=== PATIENT | male | born 1995 | race Caucasian/White ===

== ENCOUNTER 2017-03-04 13:30 | Emergency (ER) | payer BC, OTHER ==
[~2017-03-04] VITALS: Ht 188 cm; Wt 63.5 kg
[2017-03-04 13:34] VITALS: TEMP 36.6; Ht 188 cm; Wt 63.5 kg
[2017-03-04] MEDS ORDERED: SODIUM CHLORIDE 0.9% 1000ML 1,000 ML IV STA (14:00)
[2017-03-04] MEDS ORDERED: KETOROLAC TROMETHAMINE 30 MG/ML VIAL IV STA (14:00)
[2017-03-04] MEDS ORDERED: PROCHLORPERAZINE 5 MG/ML 2 ML VIAL IV STA (14:00)
[2017-03-04] MEDS ORDERED: DiphenhydrAMINE HCL 50 MG/ML VIAL IV STA (14:00)
[2017-03-04 14:40] LABS: BASO % 0.3 %; BASO ABS # 0.02 K/uL (0-0.2); COMPLETE YES; EOS % 1.2 %; IG% 0.1 %; LYMPH % 15.6 %; LYMPH ABS # 1.18 K/uL (1.2-3.4); MEAN CORPUSCULAR HEMOGLOBIN 29.3 pg (25-34); MEAN CORPUSCULAR HGB CONC 35.3 g/dl (32-36); MEAN PLATELET VOLUME 10.9 fL (7.4-10.4); MONO % 4.9 %; NEUT % 77.9 %; PLATELET COUNT 258 K/uL (130-400); RED BLOOD COUNT 5.42 M/uL (4.7-6.1); WHITE BLOOD COUNT 7.55 K/uL (4.8-10.8)
--- NOTE | 2017-03-04 14:49 | DIAGNOSTIC IMAGING REPORT ---
HEAD CT NONCONTRAST CT DOSE: 614.27 mGy.cm HISTORY: Headache w/ resolved right side numbness TECHNIQUE: Multiaxial CT images of the head were performed without the use of intravenous contrast. Automated exposure control was utilized for this study. Comparison: None. Findings: The paranasal sinuses and mastoid air cells are clear. The calvarium and skull base are intact. The ventricles are slightly prominent for age. However, there are no obstructing masses identified. There is no mass, hematoma, midline shift, or acute infarct. Impression: No acute intracranial abnormality. The ventricles are slightly prominent for age. Electronically signed by: Adrian Colon M.D. 03/04/2017 2:48 PM Dictated Date/Time: 03/04/2017 2:45 PM
[2017-03-04 15:01] LABS: BUN/CREATININE RATIO 6.5 (10-20); CALCIUM 9.3 mg/dl (8.5-10.1); CREATININE 0.95 mg/dl (0.60-1.40); POTASSIUM 3.9 mmol/L (3.5-5.1)
[2017-03-04 15:59] VITALS: BP 122/70; PULSE 62; O2SAT 99
--- NOTE | 2017-03-04 21:02 | EMERGENCY ROOM VISIT NOTE ---
History Report prepared by Matthewibguzman: Liu Holguin Under the Supervision of: Dr. Kurt Franco D.O. First contact with patient: 13:49 Chief Complaint: HEADACHE Stated Complaint: NUMBNESS,HEADACHE,IMPAIRED VISION History of Present Illness The patient is a 21 year old male who presents to the Emergency Room with complaints of a constant left sided headache beginning 2 hours ago. He has a history of migraines and states that his current headache feels like a typical migraine. He has not had a migraine in over a year. The patient estimates that he would get them once every 3-4 months previously. He notes that he would typically get them with changing seasons, usually spring to summer. The patient states that his current headache came on gradually. He also complains of some visual changes and right sided numbness, which is typical of his migraines. He states that the numbness began before his headache in his right thigh, and moved up through his chest and arm, and finally into his head. The patient states that the numbness resolved as the visual changes began, and finally the headache started. His visual changes are not currently present. He also complains of photophobia. Pt denies weakness, fevers, chest pain, shortness of breath, nausea, vomiting, diarrhea, pain with urination, and melena. He notes that he has felt depressed lately, and has not been sleeping well. He notes that his brother and mother have histories of migraines as well. Source of History: patient Onset: 2 hours ago Position: head (left side) Timing: constant Associated Symptoms: + numbness (right side), No SOB, No abdominal pain, No chest pain, No chills, No diarrhea, No fevers, No nausea, No vomiting Note: The patient also complains of resolved visual changes and photophobia. Review of Systems See HPI for pertinent positives & negatives. A total of 10 systems reviewed and were otherwise negative. Past Medical & Surgical Medical Problems: (1) No Known Active Medical Problems Family History No pertinent family history stated. Social History Smoking Status: Never Smoker Housing Status: lives with family Current/Historical Medications No Active Prescriptions or Reported Meds Allergies Coded Allergies: No Known Allergies (Unverified , 03/04/17) Physical Exam Vital Signs Date Time Temp Pulse Resp B/P Pulse Ox O2 Delivery O2 Flow Rate FiO2 03/04/17 15:59 62 18 122/70 99 03/04/17 13:34 36.6 87 18 153/85 99 Room Air Physical Exam GENERAL: Laying in bed, alert, well appearing, well nourished, no distress, non- toxic EYE EXAM: normal conjunctiva, PERRL and EOM's intact OROPHARYNX: no exudate, no erythema, lips, buccal mucosa, and tongue normal and mucous membranes are moist NECK: supple, no nuchal rigidity, no adenopathy, non-tender, negative Brudzinski 's. LUNGS: Clear to auscultation. Normal chest wall mechanics HEART: no murmurs, S1 normal and S2 normal ABDOMEN: abdomen soft, non-tender, normo-active bowel sounds, no masses, no rebound or guarding. BACK: Back is symmetrical on inspection and there is no deformity, no midline tenderness, no CVA tenderness. SKIN: no rashes and no bruising UPPER EXTREMITIES: upper extremities are grossly normal. LOWER EXTREMITIES: No pitting edema. NEURO EXAM: Normal sensorium, cranial nerves II-XII intact, normal speech, no weakness of arms, no weakness of legs. No drift. Finger to nose intact. Gross sensation intact. Rapid alternating movements of the upper extremities intact. Medical Decision & Procedures ER Provider Diagnostic Interpretation: Radiology results as stated below per my review and the radiologist's interpretation: HEAD CT NONCONTRAST Findings: The paranasal sinuses and mastoid air cells are clear. The calvarium and skull base are intact. The ventricles are slightly prominent for age. However, there are no obstructing masses identified. There is no mass, hematoma, midline shift, or acute infarct. Impression: No acute intracranial abnormality. The ventricles are slightly prominent for age. Electronically signed by: Adrian Colon M.D. Laboratory Results 03/04/17 14:25 Red Blood Count 5.42, Mean Corpuscular Volume 83.0, Mean Corpuscular Hemoglobin 29.3, Mean Corpuscular Hemoglobin Concent 35.3, Mean Platelet Volume 10.9, Neutrophils (%) (Auto) 77.9, Lymphocytes (%) (Auto) 15.6, Monocytes (%) (Auto) 4.9, Eosinophils (%) (Auto) 1.2, Basophils (%) (Auto) 0.3, Neutrophils # (Auto) 5.88, Lymphocytes # (Auto) 1.18, Monocytes # (Auto) 0.37, Eosinophils # (Auto) 0.09, Basophils # (Auto) 0.02 03/04/17 14:25 Test 03/04/17 14:25 White Blood Count 7.55 K/uL (4.8-10.8) Red Blood Count 5.42 M/uL (4.7-6.1) Hemoglobin 15.9 g/dL (14.0-18.0) Hematocrit 45.0 % (42-52) Mean Corpuscular Volume 83.0 fL (80-100) Mean Corpuscular Hemoglobin 29.3 pg (25-34) Mean Corpuscular Hemoglobin Concent 35.3 g/dl (32-36) Platelet Count 258 K/uL (130-400) Mean Platelet Volume 10.9 fL (7.4-10.4) Neutrophils (%) (Auto) 77.9 % Lymphocytes (%) (Auto) 15.6 % Monocytes (%) (Auto) 4.9 % Eosinophils (%) (Auto) 1.2 % Basophils (%) (Auto) 0.3 % Neutrophils # (Auto) 5.88 K/uL (1.4-6.5) Lymphocytes # (Auto) 1.18 K/uL (1.2-3.4) Monocytes # (Auto) 0.37 K/uL (0.11-0.59) Eosinophils # (Auto) 0.09 K/uL (0-0.5) Basophils # (Auto) 0.02 K/uL (0-0.2) RDW Standard Deviation 38.5 fL (36.4-46.3) RDW Coefficient of Variation 12.9 % (11.5-14.5) Immature Granulocyte % (Auto) 0.1 % Immature Granulocyte # (Auto) 0.01 K/uL (0.00-0.02) Anion Gap 7.0 mmol/L (3-11) Est Creatinine Clear Calc Drug Dose 111.4 ml/min Estimated GFR () 133.0 Estimated GFR (Non- 114.8 BUN/Creatinine Ratio 6.5 (10-20) Calcium Level 9.3 mg/dl (8.5-10.1) Laboratory results per my review. Medications Administered Medications (Trade) Dose Ordered Sig/Xavier Route Start Time Stop Time Status Last Admin Dose Admin Sodium Chloride (Nss 1000ml) 1,000 ml @ 999 mls/hr Q1H1M STAT IV 03/04/17 14:00 03/04/17 15:00 DC 03/04/17 14:00 999 MLS/HR Ketorolac Tromethamine (Toradol Inj) 30 mg NOW STAT IV 03/04/17 14:00 03/04/17 14:02 DC 03/04/17 14:29 30 MG Diphenhydramine HCl (Benadryl Inj) 50 mg NOW STAT IV 03/04/17 14:00 03/04/17 14:02 DC 03/04/17 14:28 50 MG Prochlorperazine Edisylate (Compazine Inj) 10 mg NOW STAT IV 03/04/17 14:00 03/04/17 14:02 DC 03/04/17 14:28 10 MG ED Course ED COURSE: Vital signs were reviewed and appeared normal The patients medical record was reviewed The above diagnostic studies were performed and reviewed. ED treatments and interventions as stated above. 1350: The patient was evaluated in room A12. A complete history and physical examination was performed. 1400: Ordered Compazine Inj 10 mg IV, Benadryl Inj 50 mg IV, Toradol Inj 30 mg IV, Sodium Chloride 1000 ml @ 999 mls/hr IV. 1520: I reassessed the patient. His headache is almost completely resolved. He has no visual changes or numbness. 1535: Upon reevaluation, the patient is resting comfortably. I discussed my findings with the patient and he understands and agrees with the treatment plan. Based on the patients age, coexisting illnesses, exam and lab findings the decision to treat as an outpatient was made. The patient remained stable while under my care. The patient appeared well at the time of discharge. Medical Decision Differential Diagnosis includes but is not limited to headache, tension headache , cluster headache, migraine, subarachnoid hemorrhage, meningitis, mass, central venous thrombus, concussion, trauma and epidural/subdural hemorrhage. Patient is a 21-year-old male who presents the ER for headache. He notes that he has a history of migraines and has been getting them for the past 7 years. He notices migraines start with numbness in his right lower extremity which progresses to numbness in his right upper extremity. Following this it completely resolves and then he gets white spots in his vision which will resolve and then he gets his typical headache. He notes this headache came on gradually and feels exactly like his previous migraines. Numbness and white spots has completely resolved. CT of his head was unremarkable with exception of mild prominent ventricles. He was completely neurologically intact. I discussed his findings with neurology and they agree with having him follow-up as an outpatient. He was given IV fluids, Compazine, Benadryl and Toradol. Patient notes that this feels exactly like his previous migraines and I felt that it was reasonable to discharge him and have him follow-up with his primary care doctor and neurology. Discussed with Pt concerning signs and symptoms to watch out for. Pt was instructed to follow up with their PCP and discussed with the patient their option to return to the ED at anytime for persistent or worsening symptoms. The appropriate anticipatory guidance and out-patient management, including indications for return to the emergency department, were explained at length to the patient and understood. Consults Time Called: 1520 Consulting Physician: Dr. Ho -Neurology Returned Call: [phone] I reviewed the patient's case with Dr Ho. She agrees with the treatment plan and outpatient follow up. Impression Primary Impression: Cephalgia Scribe Attestation The scribe's documentation has been prepared under my direction and personally reviewed by me in its entirety. I confirm that the note above accurately reflects all work, treatment, procedures, and medical decision making performed by me. Departure Information Dispostion Home / Self-Care Prescriptions No Active Prescriptions or Reported Meds Referrals No Doctor, Assigned (PCP) Forms HOME CARE DOCUMENTATION FORM, IMPORTANT VISIT INFORMATION Patient Instructions Headache Pain, My [facility] Additional Instructions Please follow up with your primary care doctor with in the next 24 hours. Any worsening of your symptoms, please return to the ED immediately. This includes change in vision, weakness or numbness in your arms or legs, confusion, or any other concerning signs or symptoms from your standpoint. Please do not drive, work, operate heavy machinery for the next 12 hours. Please follow up with neurology as listed below within one week. Problem Qualifiers Primary Impression: Cephalgia Headache type: unspecified Headache chronicity pattern: acute headache Intractability: not intractable Qualified Codes: R51 - Headache
== END 2017-03-04 16:00 | disposition home or self-care (01) ==
LOC: C.EDB 13:31 → C.EDA 16:00
DX: R51 Headache (principal)